=== PATIENT | female | born 1930 | race Caucasian/White ===

== ENCOUNTER 2017-11-28 11:28 | Emergency (ER) | payer MEDICARE ==
[2017-11-28 12:12] LABS: Bilirubin Negative (Negative); Blood, Urine Large (Negative); Clarity CLOUDY (Clear); Glucose, Urine (Dipstick) Negative (Negative); Leukocyte Large (Negative); Nitrite Negative (Negative); Protein, Urine (Dipstick) 30 mg/dL (Neg-Trace); Specific Gravity, Urine 1.021 (1.002-1.036); pH, Urine 5.5 (5.0-9.0)
[2017-11-28 12:16] LABS: Bacteria/HPF Rare-Few HPF (None Seen); Squamous Epithelial None Seen HPF (0-3)
[2017-11-28 12:22] LABS: Pathc Cast-AUWi Flag 18.89 (0-2.49)
[2017-11-28 12:36] LABS: Hyaline Casts/LPF NONE SEEN LPF (0-3 Hyaline); Other Casts/LPF None Seen LPF (0-3 Hyaline)
[2017-11-28 12:44] LABS: #Basophils 0.1 thou/uL (0.0-0.2); #Eosinphils 0.2 thou/uL (0.0-0.7); #Lymphocytes 2.4 thou/uL (1.20-3.40); #Monocytes 1.1 thou/uL (0.11-0.59); %Basophils 0.5 % (0.0-1.0); %Eosinophils 1.7 % (0.0-10.0); %Lymphocytes 16.3 % (21.0-51.0); %Monocytes 7.1 % (0.0-10.0); %Neutrophils 74.4 % (42.0-75.0); Hemoglobin 13.2 g/dL (12.0-16.0); Mean Corpuscular HGB CONC 32.9 g/dL (32.0-36.0); Mean Corpuscular Hemoglobin 32.1 pg (27.0-31.0); Mean Corpuscular Volume 97.7 fL (78.0-98.0); Mean Platelet Volume 7.8 fL (7.4-10.4); Platelet Count 176 thou/uL (130-400); RBC Distribution Width 12.4 % (11.5-14.5); Red Blood Cell (RBC) Count 4.09 mill/uL (4.20-5.40); White Blood Cell (WBC) Count 14.8 thou/uL (4.8-10.8)
[2017-11-28 12:59] LABS: Troponin I Less than 0.010 ng/mL (< 0.028)
[2017-11-28 13:02] LABS: ALT (SGPT) 9 U/L (8-55); AST (SGOT) 18 U/L (5-34); Albumin 3.8 g/dL (3.4-4.8); Alkaline Phosphatase 114 U/L (40-150); Anion Gap 15 mmol/L (10-20); BUN (Urea Nitrogen) 13 mg/dL (9.8-20.1); Bilirubin, Total 0.7 mg/dL (0.2-1.2); Calc. Creatinine Clearance 0 mL/min (70-130); Carbon Dioxide 22 mmol/L (23-31); Chloride 106 mmol/L (98-107); Estimated GFR-MDRD 70; Globulin 3.7 g/dL (2.4-3.5); Glucose 92 mg/dL (83-110); Lipase 39 U/L (8-78); Potassium 4.2 mmol/L (3.5-5.1); Protein, Total 7.5 g/dL (6.0-8.3); Sodium 139 mmol/L (136-145)
--- NOTE | 2017-11-28 13:22 | CT ---
CT BRAIN WITHOUT CONTRAST: Date: 11/28/17 HISTORY: Altered mental status. FINDINGS: Comparison made with exam of 09/22/14. Changes of cortical atrophy and chronic small vessel ischemic disease are again seen. The ventricular size is stable and the basilar cisterns are patent. No evidence of acute infarct, hemorrhage, midlin e shift, or abnormal extra-axial fluid collections are seen. The bony calvarium is intact. There is m ucosal disease in the paranasal sinuses. IMPRESSION: No CT evidence of acute intracranial process. POS: [facility]
--- NOTE | 2017-11-28 13:40 | RAD ---
PORTABLE AP CHEST: Date: 11/28/17 HISTORY: Altered mental status. COMPARISON: 09/22/14. FINDINGS: Cardiac silhouette is magnified by projection. Pulmonary vasculature is within normal limits. There i s mild elevation of the right hemidiaphragm. Lungs are clear. There has been no interval change from prior exam. IMPRESSION: No acute cardiopulmonary process. POS: [facility]
[2017-11-28] MEDS ORDERED: cefTRIAXone\\ROCEPHIN 1 GM VIAL ONE (13:55)
[2017-11-28] MEDS ORDERED: Lidocaine 2% PF 5 ML VIAL ONE (13:55)
[2017-11-28] MEDS ORDERED: Lidocaine 1% PF 5 ML VIAL ONE (13:57)
== END 2017-11-28 16:30 | disposition home or self-care (01) ==
LOC: ERS 11:28
DX: S00.81XA Abrasion of other part of head, initial encounter (principal); N39.0 Urinary tract infection, site not specified; E03.9 Hypothyroidism, unspecified; I10 Essential (primary) hypertension; G30.9 Alzheimer's disease, unspecified; F02.80 Dementia in other diseases classified elsewhere, unspecified severity, without behavioral disturbance, psychotic disturbance, mood disturbance, and anxiety; W19.XXXA Unspecified fall, initial encounter
CPT/HCPCS: 36415; 51701; 70450; 71045; 80053; 81003; 81015; 83605; 83690; 84443; 84484; 85025; 87077; 87086; 93005; 94760; 96372; A4353; J0696; J2001

== ENCOUNTER 2018-09-17 07:03 | Emergency (ER) | payer MEDICARE ==
[2018-09-17 08:11] LABS: #Basophils 0.1 thou/uL (0.0-0.2); #Eosinphils 0.1 thou/uL (0.0-0.7); #Lymphocytes 2.1 thou/uL (1.20-3.40); #Monocytes 0.5 thou/uL (0.11-0.59); %Basophils 1.2 % (0.0-1.0); %Eosinophils 1.7 % (0.0-10.0); %Monocytes 7.3 % (0.0-10.0); %Neutrophils 58.7 % (42.0-75.0); Hemoglobin 13.2 g/dL (12.0-16.0); Mean Corpuscular HGB CONC 33.9 g/dL (32.0-36.0); Mean Corpuscular Hemoglobin 32.1 pg (27.0-31.0); Mean Corpuscular Volume 94.8 fL (78.0-98.0); Platelet Count 205 thou/uL (130-400); RBC Distribution Width 12.5 % (11.5-14.5); White Blood Cell (WBC) Count 6.9 thou/uL (4.8-10.8)
--- NOTE | 2018-09-17 08:17 | CT ---
CT head noncontrast HISTORY: Fall. Head injury. COMPARISON: 11/28/2017. FINDINGS: There is no evidence of acute intracranial hemorrhage or infarct. Diffuse cortical atrophy, distention of the ventricular system, and chronic ischemic small vessel disease are similar in appearance to the previous exam. There is no mass effect or shift of midline structures. Visualized p aranasal sinuses remain well aerated. Large scalp laceration at the left frontal level. IMPRESSION: No acute intracranial abnormalities are demonstrated.
[2018-09-17 08:22] LABS: ALT (SGPT) 8 U/L (8-55); AST (SGOT) 18 U/L (5-34); Albumin 3.7 g/dL (3.4-4.8); Alkaline Phosphatase 114 U/L (40-150); Anion Gap 14 mmol/L (10-20); BUN (Urea Nitrogen) 11 mg/dL (9.8-20.1); Bilirubin, Total 0.5 mg/dL (0.2-1.2); Calc. Creatinine Clearance 0 mL/min (70-130); Calcium 8.8 mg/dL (7.8-10.44); Carbon Dioxide 21 mmol/L (23-31); Chloride 109 mmol/L (98-107); Estimated GFR-MDRD 86; Globulin 3.1 g/dL (2.4-3.5); Glucose 92 mg/dL (83-110); Potassium 3.8 mmol/L (3.5-5.1); Protein, Total 6.8 g/dL (6.0-8.3); Sodium 140 mmol/L (136-145)
--- NOTE | 2018-09-17 08:28 | CT ---
Cervical spine CT without contrast: 09/17/2018 COMPARISON: None HISTORY: Fall, trauma, pain TECHNIQUE: Axial CT imaging at 2.5 mm intervals through the cervical spine with coronal and sagittal reformatted imaging FINDINGS: Partially imaged brain parenchyma demonstrates ventricular enlargement. Partially imaged pa ranasal sinuses and mastoid air cells appear well-aerated. There is prominent degenerative change at the atlantoaxial interspace. The craniocervical junction ap pears intact. There is no widening of the atlantoaxial interspace. There is no evidence for fracture of the dens or the C1 ring. There is multilevel mid cervical spine facet and uncovertebral osteophyte formation noted bilaterally. The imaged lung apices demonstrate no acute findings. No displaced fracture or evidence of dislocation is noted within the cervical spine. There is multilevel cervical spine disc space narrowing. Posterior osteophyte formation noted at C3-4 and C5-6. No significant anterolisthesis or retrolisthesis. No prevertebral soft tissue swelling. There is partial fusion of right-sided facet joints at the C3-4 level and C7-T1 level. Multilevel bilateral neural foraminal stenosis is noted on the basis of facet and uncovertebral osteophyte formation, right greater than left, most prominent at C3-4, C4-5, and C5-6. IMPRESSION: Multilevel cervical spine degenerative change as detailed above. No acute fracture or aleida dence of dislocation is seen.
[2018-09-17] MEDS ORDERED: Lidocaine 1% w/Epinephrine 1:100K 20 ML VIAL ONE (09:01)
[2018-09-17] MEDS ORDERED: Adacel (T-DAP) 0.5 ML SYRINGE ONE (10:42)
[2018-09-17] MEDS ORDERED: Bacitracin Zinc 1 Packet ONE (11:50)
--- NOTE | 2018-09-18 07:20 | RAD ---
Chest one view HISTORY: Fall. COMPARISON: 11/28/2017. FINDINGS: Cardiac silhouette is magnified by projection. Pulmonary vasculature is unremarkable. Media stinum is midline. A vertically oriented opacity at the right lateral costophrenic angle extend beyond the confines of t he chest and has the appearance of overlying artifact. No lobar consolidation or evidence of pneumothorax. Calcification overlies the aorta. IMPRESSION: Atherosclerosis. No active cardiopulmonary abnormalities are otherwise demonstrated.
== END 2018-09-17 12:00 ==
LOC: ERS 07:03
DX: S01.112A Laceration without foreign body of left eyelid and periocular area, initial encounter (principal); S01.01XA Laceration without foreign body of scalp, initial encounter; M19.90 Unspecified osteoarthritis, unspecified site; E03.9 Hypothyroidism, unspecified; I10 Essential (primary) hypertension; G30.9 Alzheimer's disease, unspecified; F02.80 Dementia in other diseases classified elsewhere, unspecified severity, without behavioral disturbance, psychotic disturbance, mood disturbance, and anxiety; W18.30XA Fall on same level, unspecified, initial encounter; Z79.899 Other long term (current) drug therapy
CPT/HCPCS: 12053; 36415; 70450; 71045; 72125; 80053; 85025; 90471; 90715; J2001

== ENCOUNTER 2019-04-14 06:09 | Emergency (ER) | payer MEDICARE | END 2019-04-14 07:21 | disposition home or self-care (01) | LOC: ERS 06:09 | DX: G30.9 Alzheimer's disease, unspecified (principal); F02.80 Dementia in other diseases classified elsewhere, unspecified severity, without behavioral disturbance, psychotic disturbance, mood disturbance, and anxiety; M19.90 Unspecified osteoarthritis, unspecified site; E03.9 Hypothyroidism, unspecified; I10 Essential (primary) hypertension; Z79.899 Other long term (current) drug therapy; W06.XXXA Fall from bed, initial encounter | CPT/HCPCS: 99283 ==